=== PATIENT | female | born 1995 | race African-American/Black ===

== ENCOUNTER 2020-11-18 03:51 | Emergency (ER) | payer OTHER ==
[~2020-11-18] VITALS: Ht 152.4 cm; Wt 49.9 kg
--- NOTE | 2020-11-18 04:05 | Emergency Room Report ---
History of Present Illness General Chief Complaint: Nausea Source: Patient Present Illness HPI Is a 25-year-old female with no past medical history. She presents with chief plaint of abdominal pain and shortness of breath. This woke her up from sleep. She said she felt very nauseous and short of breath. Had chills but no fever. Abdominal pain is diffuse in nature. No bleeding. Pain is 9 out of 10. Worse with movement. Better with rest. Patient has history of miscarriage in the past. She said that her menstruation this month was abnormal. She had spotting instead of regular bleeding. No urinary complaint. 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 Patient History Past Medical History: see triage record, old chart reviewed Past Surgical History: none Pertinent Family History: none Social History: Denies: smoking Last Menstrual Period: 09/2020 Now: No Immunizations: other Reviewed Nursing Documentation: PMH: Agreed; PSxH: Agreed Nursing Documentation-PMH Past Medical History: No Stated History Review of Systems Constitutional: Reports: chills Eye: Denies: eye pain, blurred vision ENT: Denies: ear pain, nose congestion, throat swelling Respiratory: Denies: cough, shortness of breath Cardiovascular: Denies: chest pain, palpitations Gastrointestinal: Reports: abdominal pain, nausea; Denies: diarrhea, vomiting Musculoskeletal: Denies: back pain, joint pain Skin: Denies: rash Neurological: Denies: headache, numbness Endocrine: Denies: increased thirst, increased urine Hematologic/Lymphatic: Denies: easy bruising All Other Systems: negative except mentioned in HPI Physical Exam Vital Signs Date Time Temp Pulse Resp B/P (MAP) Pulse Ox O2 Delivery O2 Flow Rate FiO2 11/18/20 03:51 98.4 62 18 132/82 (99) 98 Room Air Vitals normal Sp02 EP Interpretation: reviewed, normal General Appearance: well appearing, no apparent distress, alert Head: normocephalic, atraumatic Eyes: bilateral eye PERRL, bilateral eye EOMI ENT: hearing grossly normal, normal pharynx Neck: full range of motion, supple, no meningismus Respiratory: chest non-tender, lungs clear, normal breath sounds Cardiovascular #1: regular rate, rhythm, no murmur Gastrointestinal: normal bowel sounds, no mass, no organomegaly, no bruit, non- distended, tenderness - Diffuse Musculoskeletal: back normal, normal range of motion, gait/station normal Psychiatric: mood/affect normal Medical Decision Making Diagnostic Impression: Primary Impression: Hyperemesis gravidarum Additional Impression: Threatened ER Course Presents with hyperemesis secondary to . This is very early in the process. Ultrasound did not see an IUP or an ectopic. Explained to the patient that this is early in the process and it could still be an ectopic. She felt better now and tolerating liquid. She will need a follow-up in 2 to 3 days for recheck on beta hCG level. Urinalysis is still pending to rule out infection. Last Vital Signs Date Time Temp Pulse Resp B/P (MAP) Pulse Ox O2 Delivery O2 Flow Rate FiO2 11/18/20 03:51 98.4 62 18 132/82 (99) 98 Room Air Status: improved Disposition: HOME, SELF-CARE Condition: Stable Scripts Nitrofurantoin Monohyd/M-Cryst* (MACROBID 100 MG*) 100 Mg Capsule 100 MG ORAL EVERY 12 HOURS for 7 Days, CAP Prov: Argentina Palacios M.D. 11/18/20 Ondansetron (Zofran) 4 Mg Tablet 4 MG ORAL Q6H PRN for Nausea & Vomiting, #30 TAB 0 Refills Prov: Edgar Brand MD 11/18/20 Additional Instructions: Follow-up with your doctor in 2 to 3 days for repeat on your level. Return if symptoms worsen. Edgar Brand MD Nov 18, 2020 04:05
[2020-11-18 04:15] VITALS: BP 127/78
[2020-11-18] MEDS ORDERED: Morphine Sulfate 4mg/ml Inj (IV USE ONLY) IVP ONE (04:15)
[2020-11-18 04:19] LABS: BASOPHILS % (AUTO) 0.7 % (0.0-2.0); EOSINOPHILS % (AUTO) 1.7 % (0.0-3.0); HEMATOCRIT 34.9 % (37.0-47.0); HEMOGLOBIN 12.1 G/DL (12.0-16.0); LYMPHOCYTES % (AUTO) 46.6 % (20.0-45.0); MEAN CORPUSCULAR VOLUME 84 FL (80-99); MONOCYTES % (AUTO) 6.5 % (1.0-10.0); NEUTROPHILS % (AUTO) 44.6 % (45.0-75.0); PLATELET COUNT 271 K/UL (150-450); RED BLOOD COUNT 4.17 M/UL (4.20-5.40); RED CELL DISTRIBUTION WIDTH 14.4 % (11.6-14.8)
[2020-11-18 04:29] LABS: ANION GAP 10 mmol/L (5-15); BLOOD UREA NITROGEN 13 mg/dL (7-18); CALCIUM 8.6 MG/DL (8.5-10.1); CARBON DIOXIDE 22 MMOL/L (21-32); CHLORIDE 105 MMOL/L (98-107); CREATININE 0.9 MG/DL (0.55-1.30); POTASSIUM 2.9 MMOL/L (3.5-5.1); SODIUM 137 MMOL/L (136-145)
[2020-11-18 04:33] LABS: ALANINE AMINOTRANSFERASE 15 U/L (12-78); ALBUMIN 3.6 G/DL (3.4-5.0); ALBUMIN/GLOBULIN RATIO 0.9 (1.0-2.7); ALKALINE PHOSPHATASE 56 U/L (46-116); ASPARTATE AMINO TRANSFERASE 16 U/L (15-37); BILIRUBIN,TOTAL 0.4 MG/DL (0.2-1.0)
[2020-11-18] MEDS ORDERED: Metoclopramide 10mg/2ml Inj IVP ONE ×2 (05:00→06:30)
[2020-11-18] MEDS ORDERED: ZOFRAN4 MG ORAL (05:55)
--- NOTE | 2020-11-18 06:09 | Diagnostic Imaging Report ---
EXAM: US Pelvis Transvaginal CLINICAL HISTORY: PAIN TECHNIQUE: Real-time transvaginal pelvic ultrasound with image documentation. Transvaginal imaging was used for better evaluation of the endometrium and adnexa. COMPARISON: No relevant prior studies available. FINDINGS: HCG 684. LMP 11/16/2020. Uterus measures 7.9 x 5.7 x 4.6 cm. Uterine morphology is not adequately assessed on this study. Endometrium measures 1.7 cm, thickened. There is no intrauterine gestational sac identified at this time. Right ovary measures 3.2 x 1.9 x 2.2 cm. Left ovary measures 3.4 x 2.1 x 2.7 cm. Ovaries are symmetric in size. Normal vascular flow is identified of the left ovary. Limited vascular waveform is identified of the right ovary which may be due to suboptimal sonographic technique. Clinical correlation is recommended. No adnexal mass is visualized, though visualization of ectopic would not be expected at this time given the hCG level. Small free fluid in the cul-de-sac. IMPRESSION: Positive HCG without evidence of gestational sac within the uterus or along the adnexa. is of indeterminate location. Continued clinical, imaging, and laboratory follow-up is recommended along with MASK INSPECTOR evaluation. Short-term follow-up ultrasound is recommended.
[2020-11-18 06:25] LABS: APPEARANCE,URINE SLIGHTLY CLOUDY; BILIRUBIN, URINE NEGATIVE (NEGATIVE); COLOR,URINE PALE YELLOW; GLUCOSE, URINE (UA) NEGATIVE (NEGATIVE); KETONES,URINE 2+ (NEGATIVE); LEUKOCYTE ESTERASE ,URINE 3+ (NEGATIVE); NITRITE,URINE NEGATIVE (NEGATIVE); PH,URINE 5 (4.5-8.0); PROTEIN,URINE NEGATIVE (NEGATIVE); UROBILINOGEN,URINE NORMAL MG/DL (0.0-1.0)
[2020-11-18] MEDS ORDERED: NITROFURANTOIN100 M2 ORAL (06:42)
[2020-11-18 07:03] VITALS: BP 125/76
== END 2020-11-18 07:02 | disposition home or self-care (01) ==
LOC: EDBD 03:51 → EMR 04:09
DX: O21.0 Mild hyperemesis gravidarum (principal); O20.0 Threatened abortion; Z3A.00 Weeks of gestation of pregnancy not specified; Z88.1 Allergy status to other antibiotic agents
CPT/HCPCS: 36415; 76830; 76856; 80053; 81003; 81025; 83690; 84702; 85025; 96361; 96374; 96375; 96376; J2270; J2405; J2765; Z7502; 99284; J8499

== ENCOUNTER 2020-11-26 13:53 | Emergency (ER) | payer OTHER ==
[~2020-11-26] VITALS: Ht 152.4 cm; Wt 72.6 kg
[~2020-11-26 13:53] MED LIST: NITROFURANTOIN100 M2 ORAL; ZOFRAN4 MG ORAL
--- NOTE | 2020-11-26 14:00 | NUR ---
ED Nurse Note: IV line established. Blood and urine sent to lab.
--- NOTE | 2020-11-26 14:25 | NUR ---
ED Nurse Note: Pt walked in to ED from home for a recheck of LMP . Pt was seen here last 11/18/20 for nausea/ vomiting. Pt stated, she was told to come back to the ER after 3 days for further evaluation. Denies n/v or vaginal bleeding. Pt is continues to c/o left side pain. AAOx4, verbally responsive. No SOB. ERPA at bedside.
--- NOTE | 2020-11-26 14:41 | Emergency Room Report ---
History of Present Illness General Chief Complaint: Complications Source: Patient Present Illness HPI 25-year-old female G1, P0 presents today for follow-up after finding out she was 1 week ago. Patient denies any current bleeding, she only reports mild bloating sensation in abdominal area left greater than right. In review of past medical records, patient was seen here about 1 week ago after experiencing lower abdominal pain and vomiting, at that time she was diagnosed with hyperemesis in . Her beta hCG was in the 600s. Nothing was seen on the OB ultrasound at that time. Location is diffuse abdominal area, severity is minimal, quality is bloating, timing beginning today. Patient states she has no modifying factors. Denies any vomiting or diarrhea, urinary symptoms, vaginal bleeding or vaginal discharge, or any other associated signs or symptoms. 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 PULMONARY: No SOB, no cough, no wheezing CARDIAC: No chest pain, No palpitations, no leg swelling GI: + abdominal pain, no vomiting, no diarrhea , no melena or BRBPR : No flank pain, no dysuria, no hematuria, no frequency. MUSCULOSKELETAL: No back pain, no neck pain, no leg pain SKIN: No rash, no itching, no bruising NEUROLOGICAL: No headache, no dizziness, no paresthesia , no focal weakness. 14 point Review of Systems is otherwise negative except per HPI Physical Exam Vital Signs Date Time Temp Pulse Resp B/P (MAP) Pulse Ox O2 Delivery O2 Flow Rate FiO2 11/26/20 14:18 98.2 78 18 125/73 (90) 99 Room Air Other Organ Systems Physical Exam: GENERAL: Awake, alert, nontoxic, in no acute distress EYES: EOMI, conjunctiva without pallor HEAD/EARS/NOSE/THROAT: NCAT, oral mucosa moist, external nose and ear normal in appearance, oropharynx clear, no swelling or exudates. NECK: supple, nontender, no spasm, no JVD, no cervical adenopathy RESPIRATORY: no stridor, effort normal, no retractions, no accessory muscle use, BS clear bilaterally, no wheezes, no rhonchi, no rales, no rub. CARDIOVASCULAR: RRR, normal S1 S2, no murmur, no peripheral edema ABDOMINAL /GI: soft, nondistended, nontender, BS normal, no masses, no guarding, no Mcburneys point tenderness, no rebound, no Murpheys sign : No CVA tenderness MUSCULOSKELETAL: All extremities are non-tender, no swelling, FROM, normal strength, normal sensation, cap refill <2 seconds in all extremities EXTREMITIES: no leg swelling, pulses: 2+ brisk and normal in all distal extremities SKIN: No rash, skin is warm and dry. No cyanosis, no pallor NEUROLOGICAL: awake, alert and appropriate, oriented x3, speech normal, motor and sensation grossly intact PSYCHIATRIC: Normal mood, normal affect Medical Decision Making PA Attestation Dr. Galeana Is my supervising Physician whom patient management has been discussed with. Diagnostic Impression: Primary Impression: First trimester ER Course Differential diagnosis includes, ectopic , hemorrhagic ovarian cyst, threatened , inevitable , fibroids, severe anemia, dysfunctional uterine bleeding, vaginal / uterine mass, among others. Patient presents today for reevaluation of . She was seen here about 1 week ago and had ultrasound done revealing no evidence of uterine however she did have a positive beta hCG of 600. Today patient's beta-hCG is in the 6000s. Repeat ultrasound revealed evidence of a gestational sac however no pole. She is currently not complaining of any abdominal pain or bleeding only bloating sensation. Labs essentially unremarkable. Explained to patient we cannot rule out ectopic at this time and that she will need to return to ER in 1 week for repeat ultrasound. Also explained to patient that she should return sooner to the emergency room if she experiences any worsening in symptoms any vaginal bleeding or worsening abdominal pain. Patient states she understands and agrees with the plan. No bleeding has occurred. She denies any abnormal vaginal discharge or urinary symptoms. She is currently taking Macrobid which was prescribed to her last week when she was here. Will not give another prescription at this time for UTI. Patient sent home with [facility] to establish OB care. Also sent patient with a prescription for prenatals advised patient to stop smoking marijuana. Laboratory Tests Test 11/26/20 14:00 11/26/20 14:26 White Blood Count 7.6 K/UL (4.8-10.8) Red Blood Count 3.89 M/UL (4.20-5.40) L Hemoglobin 11.3 G/DL (12.0-16.0) L Hematocrit 35.8 % (37.0-47.0) L Mean Corpuscular Volume 92 FL (80-99) Mean Corpuscular Hemoglobin 29.1 PG (27.0-31.0) Mean Corpuscular Hemoglobin Concent 31.6 G/DL (32.0-36.0) L Red Cell Distribution Width 13.2 % (11.6-14.8) Platelet Count 246 K/UL (150-450) Mean Platelet Volume 6.0 FL (6.5-10.1) L Neutrophils (%) (Auto) 65.1 % (45.0-75.0) Lymphocytes (%) (Auto) 25.9 % (20.0-45.0) Monocytes (%) (Auto) 7.2 % (1.0-10.0) Eosinophils (%) (Auto) 0.9 % (0.0-3.0) Basophils (%) (Auto) 1.0 % (0.0-2.0) Sodium Level 138 MMOL/L (136-145) Potassium Level 3.2 MMOL/L (3.5-5.1) L Chloride Level 106 MMOL/L (98-107) Carbon Dioxide Level 25 MMOL/L (21-32) Anion Gap 7 mmol/L (5-15) Blood Urea Nitrogen 12 mg/dL (7-18) Creatinine 0.9 MG/DL (0.55-1.30) Estimated Glomerular Filtration Rate > 60 mL/min (>60) Glucose Level 103 MG/DL (74-106) Calcium Level 8.7 MG/DL (8.5-10.1) Total Bilirubin 0.4 MG/DL (0.2-1.0) Aspartate Amino Transferase (AST) 17 U/L (15-37) Alanine Aminotransferase (ALT) 11 U/L (12-78) L Alkaline Phosphatase 51 U/L (46-116) Total Protein 6.7 G/DL (6.4-8.2) Albumin 3.1 G/DL (3.4-5.0) L Globulin 3.6 g/dL Albumin/Globulin Ratio 0.9 (1.0-2.7) L Lipase 90 U/L (73-393) Human Chorionic Gonadotropin, Quant 6105 mIU/mL (1-6) H Urine Color Pale yellow Urine Appearance Slightly cloudy Urine pH 6 (4.5-8.0) Urine Specific Kathleen 1.015 (1.005-1.035) Urine Protein Negative (NEGATIVE) Urine Glucose (UA) Negative (NEGATIVE) Urine Ketones 3+ (NEGATIVE) H Urine Blood 1+ (NEGATIVE) H Urine Nitrite Negative (NEGATIVE) Urine Bilirubin Negative (NEGATIVE) Urine Urobilinogen Normal MG/DL (0.0-1.0) Urine Leukocyte Esterase 1+ (NEGATIVE) H Urine RBC 0-2 /HPF (0 - 2) Urine WBC 0-2 /HPF (0 - 2) Urine Squamous Epithelial Cells Moderate /LPF (NONE/OCC) H Urine Bacteria Few /HPF (NONE) CT/MRI/US Diagnostic Results CT/MRI/US Diagnostic Results : Imaging Test Ordered: OB Ultrasound, first trimester Impression History: PAIN Exam:US OB 1st TRIMESTER FINDINGS: Transabdominal and transvaginal imaging. The uterus measures 8.6 x 3.9 x 5 cmtransabdominally. Possible small uterine fibroid measuring up to 1.5 cm. Single intrauterine gestational sac measuring around 4weeks and 6 days is too small to further characterize at this time. No pole or yolk sac identified at this time. No evidence of adam-sac hemorrhage seen. The right ovary measures 3 x 1.4 x 1.9 cm. The left ovarymeasures 3.4 x 1.5 x 2.1 cm. The ovaries appear within limits with evidence of bilateral vascular variant flowseen. No evidence of adnexal mass identified. Small amount of pelvic free fluid seen. IMPRESSION: Single intrauterine gestational sac measuring around 4weeks and 6 days is too small to further characterize at this time. No pole or yolk sac identified at this time. No evidence of adam-sac hemorrhage seen. Maycorrelate further with quantitative and serial beta-hCG and as clinically warranted short-term follow-up imaging. No evidence of adnexal mass identified. Small amount of pelvic free fluid seen. Radiologist: Franco Webster M.D. Electronically Signed: 11/26/20 16:52 Study ready at 16:18 and initial results transmitted at 16:52 Last Vital Signs Date Time Temp Pulse Resp B/P (MAP) Pulse Ox O2 Delivery O2 Flow Rate FiO2 11/26/20 14:18 98.2 78 18 125/73 (90) 99 Room Air Disposition: HOME, SELF-CARE Condition: Stable Scripts Sea594/FA/Omega3/Dha/Fish Oil ( Gummies) 1 Each Tab.chew 1 EACH PO DAILY for 30 Days, #30 TAB 3 Refills Prov: Mindy Nino PA-C 11/26/20 Referrals: [facility],REFERRING (PCP) Additional Instructions: Start taking prenatals daily. Stop smoking marijuana. Establish care with an OB doctor and have a repeat ultrasound in 1 month. Return to ER sooner if you experiencing any bleeding or worsening in pain. Follow up with a Primary Care Provider in 1-2 days, even if your symptoms have resolved. - Please note that this Emergency Department Report was dictated using Geotenderswift tender technology software, occasionally this can lead to erroneous entry secondary to interpretation by the dictation equipment. Mindy Nino PA-C Nov 26, 2020 14:41
[2020-11-26 14:51] LABS: APPEARANCE,URINE SLIGHTLY CLOUDY; BILIRUBIN, URINE NEGATIVE (NEGATIVE); COLOR,URINE PALE YELLOW; GLUCOSE, URINE (UA) NEGATIVE (NEGATIVE); KETONES,URINE 3+ (NEGATIVE); LEUKOCYTE ESTERASE ,URINE 1+ (NEGATIVE); NITRITE,URINE NEGATIVE (NEGATIVE); PH,URINE 6 (4.5-8.0); PROTEIN,URINE NEGATIVE (NEGATIVE); UROBILINOGEN,URINE NORMAL MG/DL (0.0-1.0)
--- NOTE | 2020-11-26 14:53 | NUR ---
ED Nurse Note: US at bedside.
[2020-11-26 15:06] LABS: EOSINOPHILS % (AUTO) 0.9 % (0.0-3.0); HEMATOCRIT 35.8 % (37.0-47.0); HEMOGLOBIN 11.3 G/DL (12.0-16.0); LYMPHOCYTES % (AUTO) 25.9 % (20.0-45.0); MEAN CORPUSCULAR VOLUME 92 FL (80-99); MONOCYTES % (AUTO) 7.2 % (1.0-10.0); NEUTROPHILS % (AUTO) 65.1 % (45.0-75.0); PLATELET COUNT 246 K/UL (150-450); RED BLOOD COUNT 3.89 M/UL (4.20-5.40); RED CELL DISTRIBUTION WIDTH 13.2 % (11.6-14.8); WHITE BLOOD COUNT 7.6 K/UL (4.8-10.8)
[2020-11-26 15:14] LABS: ANION GAP 7 mmol/L (5-15); BLOOD UREA NITROGEN 12 mg/dL (7-18); CALCIUM 8.7 MG/DL (8.5-10.1); CARBON DIOXIDE 25 MMOL/L (21-32); CHLORIDE 106 MMOL/L (98-107); CREATININE 0.9 MG/DL (0.55-1.30); POTASSIUM 3.2 MMOL/L (3.5-5.1); SODIUM 138 MMOL/L (136-145)
[2020-11-26 15:19] LABS: ALANINE AMINOTRANSFERASE 11 U/L (12-78); ALBUMIN 3.1 G/DL (3.4-5.0); ALBUMIN/GLOBULIN RATIO 0.9 (1.0-2.7); ALKALINE PHOSPHATASE 51 U/L (46-116); ASPARTATE AMINO TRANSFERASE 17 U/L (15-37); BILIRUBIN,TOTAL 0.4 MG/DL (0.2-1.0)
[2020-11-26] MEDS ORDERED: PRENATAL GUMMI1 EACH PO (16:25)
[2020-11-26 16:42] VITALS: BP 119/74
--- NOTE | 2020-11-26 16:42 | NUR ---
ED Nurse Note: Pt cleared by ERPA for discharge. DC instructions was given and explained to pt and verbalized understanding of teachings. /prescription sent electronically to the pharmacy. All medical deviecs such as ID band and IV line removed. Pt is AAO x4, ambulatory and left with all personal belongings.
--- NOTE | 2020-11-26 16:52 | Diagnostic Imaging Report ---
History: PAIN Exam: US OB 1st TRIMESTER Comparison: FINDINGS: Transabdominal and transvaginal imaging. The uterus measures 8.6 x 3.9 x 5 cm transabdominally. Possible small uterine fibroid measuring up to 1.5 cm. Single intrauterine gestational sac measuring around 4 weeks and 6 days is too small to further characterize at this time. No pole or yolk sac identified at this time. No evidence of adam-sac hemorrhage seen. The right ovary measures 3 x 1.4 x 1.9 cm. The left ovary measures 3.4 x 1.5 x 2.1 cm. The ovaries appear within limits with evidence of bilateral vascular variant flow seen. No evidence of adnexal mass identified. Small amount of pelvic free fluid seen. IMPRESSION: Single intrauterine gestational sac measuring around 4 weeks and 6 days is too small to further characterize at this time. No pole or yolk sac identified at this time. No evidence of adam-sac hemorrhage seen. May correlate further with quantitative and serial beta-hCG and as clinically warranted short-term follow-up imaging. No evidence of adnexal mass identified. Small amount of pelvic free fluid seen.
== END 2020-11-26 16:42 | disposition home or self-care (01) ==
LOC: EMR 14:09
DX: O26.891 Other specified pregnancy related conditions, first trimester (principal); Z3A.01 Less than 8 weeks gestation of pregnancy; Z88.0 Allergy status to penicillin; R14.0 Abdominal distension (gaseous)
CPT/HCPCS: 36415; 76801; 76817; 80053; 81003; 83690; 84702; 85025; 86900; 86901; Z7502; 99284